=== PATIENT | male | born 1970 | race Caucasian/White ===

== ENCOUNTER 2018-11-20 10:30 | Emergency (ER) | payer MEDICAID ==
[~2018-11-20] VITALS: Ht 185.4 cm; Wt 103.6 kg
[2018-11-20] MEDS ORDERED: ADDE10 PO (10:41)
[2018-11-20] MEDS ORDERED: ALBUTEROL SULFATE HFA 90 MCG/PUFF 8 GM INHALER IH ONE (12:45)
[2018-11-20 13:21] VITALS: BP 147/89
== END 2018-11-20 13:23 | disposition home or self-care (01) ==
LOC: EMS 10:31
DX: J40 Bronchitis, not specified as acute or chronic (principal); I10 Essential (primary) hypertension
CPT/HCPCS: 94640; J3535

== ENCOUNTER 2019-04-20 14:24 | Emergency (ER) | payer MEDICAID ==
[~2019-04-20] VITALS: Ht 185.4 cm; Wt 95.0 kg
[~2019-04-20 14:24] MED LIST: ADDE10 PO
[2019-04-20] MEDS ORDERED: HYPERTENSION PO (14:45)
[2019-04-20] MEDS ORDERED: BENZONATATE 100 MG CAPSULE PO ONE (16:00)
[2019-04-20 16:19] VITALS: BP 142/103
== END 2019-04-20 16:53 | disposition home or self-care (01) ==
LOC: EMS 14:25
DX: J06.9 Acute upper respiratory infection, unspecified (principal); J34.89 Other specified disorders of nose and nasal sinuses; J45.909 Unspecified asthma, uncomplicated; I10 Essential (primary) hypertension